=== PATIENT | male | born 1990 | race Caucasian/White ===

== ENCOUNTER 2017-07-10 04:14 | Emergency (ER) | payer OTHER ==
[~2017-07-10] VITALS: Ht 167.6 cm; Wt 74.9 kg
[~2017-07-10 04:14] MED LIST: ACCUFLORA PROBIOTIC PO; ACETAMINOP160 MG/51 GT; ALBUTEROL2.5 MG/3 M IH; ALPRAZOLAM0.5 MG GT; AMBIEN10 MG PO; AMOX/CLAV; AVENTYL,PAMELOR10 MG PO; AVENTYL,PAMELOR50 MG PO; BACLOFEN10 MG PO; CALCIUM 600 +1 EAC4 PO; CELEXA20 MG PO; CIPRO500 MG PO; CITALOPRAM HBR20 MG PO; CLONAZEPAM0.5 MG PO; CLONAZEPAM1 MG PO; COLACE100 MG PO; Coumadin,Jantoven PO; DIAZEPAM5 MG PO; DITROPAN XL10 MG PO; DOCUSATE SODIU100 MG GT; DOCUSATE SODIU100 MG PO; DOXYCYCLINE HYC50 MG PO; DULCOLAX10 MG PR; ESCITALOPRAM OX20 MG PO; FEOSOL325 MG PO; FERRO-TIME325 MG PO; FERROUS SULFAT325 M2 PO; FERROUS SULFAT325 MG PO; FLUDROCORTISON0.1 M1 PO; IRON325 MG PO; KEFLEX500 MG PO; KLONOPIN0.5 M1 PO; LEVAQUIN750 MG PO; LEXAPRO20 MG GT; LIDOCREAM15 GM TP; LOPRESSOR25 MG PO; LOVENOX80 MG/0.8 SC; Lovenox SC; MEGACE40 MG PO; METOPROLOL TART25 MG PO; MIRTAZAPINE30 MG PO; MORPHINE SUL10 MG/M1 IV; MYCOSTATIN 100,60 ML PO; Maxipime IV; OMEPRAZOLE40 M1 PO; OXYBUTYNIN CHLO10 MG; OXYBUTYNIN CHLO10 MG PO; OXYCODONE H5 MG/5 ML GT; OXYCODONE HCL10 MG PO; OXYCODONE HCL15 MG PO; OXYCONTIN15 MG PO; PERCOCET 5/31 TABLET PO; PROBIOTIC1 EAC2 PO; PROMETHAZINE HC25 M1 PO; PROMETHAZINE12.5 M1 PO; PROTONIX40 M1 GT; PROVENTIL,2.5 MG/3 M IH; PROVENTIL2.5 MG/3 M IH; PULMICORT0.25 MG/1 IH; REMERON30 M2 PO; ROXICODONE15 MG PO; SENNA LAX; SENNA PLUS TAB1 EACH PO; SENNA8.6 M1 PO; SENOKOT5 ML GT; SEPTRA DS TABL1 EACH PO; SEROQUEL100 MG GT; TRAMADOL HCL50 MG PO; TRANSDERM-SCO1 PATCH TD; TYLENOL EXTRA500 MG PO; VANCOCIN 250 M250 MG PO; VANCOMYCIN HCL250 MG PO; VIAGRA50 MG PO; VIT D3 2000 IU; VITAMIN A10000 UNIT PO; VITAMIN D2000 INTUN PO; VITAMIN D2000 UNIT PO; VITAMIN D22000 UNIT; Vancomycin IV; XANAX0.5 MG GT; XARELTO15 MG PO; Xylocaine 5% TP; ZANAFLEX4 M1 PO; ZOFRAN ODT8 MG PO; ZOFRAN4 MG PO; ZYPREXA10 MG GT; [UNRECOGNIZED DRUG - OTHER] IV; vitamin A
[2017-07-10] MEDS ORDERED: CALCIUM 500 MG1 EACH PO (04:28)
[2017-07-10] MEDS ORDERED: OXYMORPHONE HCL10 M1 PO (04:29)
[2017-07-10] MEDS ORDERED: FLEXERIL10 MG PO (04:37)
[2017-07-10 06:52] VITALS: BP 93/69
== END 2017-07-10 08:30 | disposition home or self-care (01) ==
LOC: EME → EDBD 04:14 → EME 04:14
DX: S80.02XA Contusion of left knee, initial encounter (principal); S00.93XA Contusion of unspecified part of head, initial encounter; S80.212A Abrasion, left knee, initial encounter; M54.2 Cervicalgia; W05.0XXA Fall from non-moving wheelchair, initial encounter; G82.50 Quadriplegia, unspecified; I10 Essential (primary) hypertension; J45.909 Unspecified asthma, uncomplicated; K21.9 Gastro-esophageal reflux disease without esophagitis; Z86.718 Personal history of other venous thrombosis and embolism; Z87.891 Personal history of nicotine dependence
CPT/HCPCS: 70450; 72125; 73564; 99281; 99284

== ENCOUNTER 2017-10-19 10:10 | Emergency (ER) | payer OTHER ==
[~2017-10-19] VITALS: Ht 182.9 cm; Wt 77.3 kg
[~2017-10-19 10:10] MED LIST changes: +CALCIUM 500 MG1 EACH PO; +FLEXERIL10 MG PO; +OXYMORPHONE HCL10 M1 PO
[2017-10-19 13:13] LABS: APPEARANCE SL.HAZY ((CLEAR)); BILIRUBIN NEGATIVE; BLOOD MODERATE; COLOR YELLOW ((YELLOW)); GLUCOSE (STRIP) NEGATIVE; KETONES NEGATIVE; LEUKOCYTES LARGE; NITRITE NEGATIVE; PROTEIN (STRIP) NEGATIVE; SPECIFIC GRAVITY 1.009 (1.000-1.030); UROBILINOGEN 0.2 MG/DL (0.2-1.0)
[2017-10-19 13:41] LABS: BACTERIA 3+ /HPF; EPITHELIAL CELLS RARE /HPF; MUCUS NONE SEEN /LPF; UCUL ADDED? YES; WHITE BLOOD CELLS 20-30 /HPF (0-5)
[2017-10-19 13:54] LABS: BASOPHIL (%) 0.2 % (0-1); EOSINOPHIL (%) 0.1 % (0-5); HEMATOCRIT 40.7 % (38.0-50.0); HEMOGLOBIN 13.9 G/DL (12.5-16.6); IMMATURE GRANULOCYTE (%) 0.4 % (0.0-0.7); LYMPHOCYTE (%) 17.3 % (15-42); LYMPHOCYTE COUNT 2.3 K/uL (1.0-2.8); MCHC 34.2 G/DL (30.0-36.0); MCV 87.7 FL (86-99); MONOCYTE (%) 7.9 % (3-12); MONOCYTE COUNT 1.1 K/uL (0-0.8); NEUTROPHIL (%) 74.1 % (45-76); PLATELET COUNT 164 K/uL (156-360); RBC DIS.WIDTH-CV 12.8 % (11.8-14.6); RBC DIS.WIDTH-SD 41.3 % (39-53); RED BLOOD COUNT 4.64 M/uL (4.00-5.50); WHITE BLOOD COUNT 13.4 K/uL (4.1-10.2)
[2017-10-19 14:01] LABS: ALBUMIN 3.4 g/dL (3.2-4.8)
[2017-10-19 14:02] LABS: CHLORIDE 103 mEq/L (99-109); SODIUM 136 mEq/L (136-147)
[2017-10-19 14:04] LABS: GLUCOSE 104 mg/dL (70-99); TOTAL PROTEIN 7.3 g/dL (6.4-8.3)
[2017-10-19 14:06] LABS: TOTAL BILIRUBIN 0.7 mg/dL (0.0-1.0)
[2017-10-19 14:07] LABS: ALKALINE PHOSPHATASE 101 IU/L (3-129)
[2017-10-19 14:08] LABS: CREATININE 0.7 mg/dL (0.6-1.3); GFR ESTIMATE (CALCULATED) > 59 mL/min/ (58.99-99999)
[2017-10-19 14:09] LABS: AST (GOT) 18 IU/L (2-34); UREA NITROGEN (BUN) 8 mg/dL (9-23)
[2017-10-19 14:11] LABS: ALT (GPT) 29 IU/L (3-49); LIPASE 11 U/L (1.0-51.0)
[2017-10-19] MEDS ORDERED: FLAGYL500 MG PO (16:26)
[2017-10-19] MEDS ORDERED: LEVAQUIN750 MG PO (16:26)
[2017-10-19] MEDS ORDERED: ONDANSETRON ODT4 MG PO (16:26)
[2017-10-19 17:42] VITALS: BP 116/66
== END 2017-10-19 17:42 | disposition home or self-care (01) ==
LOC: EME 10:10
PROVIDERS: Emergency Medicine
DX: J06.9 Acute upper respiratory infection, unspecified (principal); N39.0 Urinary tract infection, site not specified; R11.2 Nausea with vomiting, unspecified; J45.909 Unspecified asthma, uncomplicated; K21.9 Gastro-esophageal reflux disease without esophagitis; I10 Essential (primary) hypertension; G82.50 Quadriplegia, unspecified; F41.9 Anxiety disorder, unspecified; F32.9 Major depressive disorder, single episode, unspecified; F31.9 Bipolar disorder, unspecified; G89.29 Other chronic pain; Z86.718 Personal history of other venous thrombosis and embolism; Z87.891 Personal history of nicotine dependence; Z86.14 Personal history of Methicillin resistant Staphylococcus aureus infection; Z88.1 Allergy status to other antibiotic agents; Z88.8 Allergy status to other drugs, medicaments and biological substances
CPT/HCPCS: 71045; 80053; 81003; 83605; 83690; 85025; 87040; 87077; 87086; 87186; 87502; 99281; 99285; J1956; J2270; J2405; J7030

== ENCOUNTER 2018-03-14 19:03 | Emergency (ER) | payer OTHER ==
[~2018-03-14] VITALS: Ht 182.9 cm; Wt 77.7 kg
[~2018-03-14 19:03] MED LIST changes: +FLAGYL500 MG PO; +ONDANSETRON ODT4 MG PO
[2018-03-14 19:40] LABS: BASOPHIL (%) 0.4 % (0-1); EOSINOPHIL (%) 2.1 % (0-5); EOSINOPHIL COUNT 0.2 K/uL (0-0.3); HEMATOCRIT 40.1 % (38.0-50.0); IMMATURE GRANULOCYTE (%) 0.2 % (0.0-0.7); LYMPHOCYTE (%) 30.2 % (15-42); MCH 29.5 PG (29.0-34.0); MCHC 34.9 G/DL (30.0-36.0); MCV 84.6 FL (86-99); MONOCYTE (%) 5.4 % (3-12); MONOCYTE COUNT 0.5 K/uL (0-0.8); NEUTROPHIL (%) 61.7 % (45-76); NEUTROPHIL COUNT 6.1 K/uL (1.8-6.4); PLATELET COUNT 250 K/uL (156-360); RBC DIS.WIDTH-CV 12.3 % (11.8-14.6); RED BLOOD COUNT 4.74 M/uL (4.00-5.50); WHITE BLOOD COUNT 9.9 K/uL (4.1-10.2)
[2018-03-14 19:48] LABS: AMYLASE 45 IU/L (1-118); CHLORIDE 100 mEq/L (99-109); POTASSIUM 3.9 mEq/L (3.7-5.4); SODIUM 136 mEq/L (136-147)
[2018-03-14 19:49] LABS: GLUCOSE 118 mg/dL (70-99)
[2018-03-14 19:53] LABS: CREATININE 0.9 mg/dL (0.6-1.3); GFR ESTIMATE (CALCULATED) > 59 mL/min/ (58.99-99999); SERUM ETHYL ALCOHOL < 10 mg/dL
[2018-03-14 19:54] LABS: UREA NITROGEN (BUN) 9 mg/dL (9-23)
[2018-03-14 19:56] LABS: LIPASE 39 U/L (1.0-51.0)
[2018-03-14 21:40] LABS: APPEARANCE CLEAR ((CLEAR)); BILIRUBIN NEGATIVE; BLOOD SMALL; COLOR STRAW ((YELLOW)); GLUCOSE (STRIP) NEGATIVE; KETONES NEGATIVE; LEUKOCYTES LARGE; NITRITE POSITIVE; PROTEIN (STRIP) NEGATIVE; SPECIFIC GRAVITY 1.021 (1.000-1.030); UROBILINOGEN 0.2 MG/DL (0.2-1.0)
[2018-03-14 21:50] LABS: AMPHETAMINE NEGATIVE (500 ng/mL); BARBITURATES NEGATIVE (200 ng/mL); BENZODIAZEPINES NEGATIVE (150 ng/mL); BUPRENORPHINE NEGATIVE (10 ng/mL); COCAINE NEGATIVE (150 ng/mL); METHADONE NEGATIVE (200 ng/mL); METHAMPHETAMINE NEGATIVE (500 ng/mL); OPIATES (MORPHINE) NEGATIVE (100 ng/mL); OXYCODONE PRESUMPTIVE POSITIVE (100 ng/mL); PHENCYCLIDINE NEGATIVE (25 ng/mL); PROPOXYPHENE NEGATIVE (300 ng/mL); THC CANNABINOIDS NEGATIVE (50 ng/mL); TRICYCLIC ANTIDEPRESSANTS NEGATIVE (300 ng/mL)
[2018-03-14 21:50] LABS: BACTERIA NONE SEEN /HPF; EPITHELIAL CELLS RARE /HPF; MUCUS TRACE /LPF; RED BLOOD CELLS 0-5 /HPF (0-5); UCUL ADDED? YES
[2018-03-14 22:42] VITALS: BP 98/66
== END 2018-03-14 23:14 | disposition home or self-care (01) ==
LOC: TRA 19:03 → EME 19:03 → TRA 23:14
PROVIDERS: Emergency Medicine
PROC: 3E0234Z Introduction of Serum, Toxoid and Vaccine into Muscle, Percutaneous Approach (ICD-10-PCS; principal; 2018-03-14)
DX: S63.501A Unspecified sprain of right wrist, initial encounter (principal); S80.02XA Contusion of left knee, initial encounter; S30.810A Abrasion of lower back and pelvis, initial encounter; R91.1 Solitary pulmonary nodule; V00.811A Fall from moving wheelchair (powered), initial encounter; W20.8XXA Other cause of strike by thrown, projected or falling object, initial encounter; Z23 Encounter for immunization; I10 Essential (primary) hypertension; K21.9 Gastro-esophageal reflux disease without esophagitis; J45.909 Unspecified asthma, uncomplicated; G82.50 Quadriplegia, unspecified; F41.9 Anxiety disorder, unspecified; F31.9 Bipolar disorder, unspecified; F32.9 Major depressive disorder, single episode, unspecified; Z87.891 Personal history of nicotine dependence; Z99.3 Dependence on wheelchair; Z86.718 Personal history of other venous thrombosis and embolism; Z86.79 Personal history of other diseases of the circulatory system; Z87.448 Personal history of other diseases of urinary system; Z86.14 Personal history of Methicillin resistant Staphylococcus aureus infection; Z79.891 Long term (current) use of opiate analgesic; Z90.2 Acquired absence of lung [part of]; Z88.1 Allergy status to other antibiotic agents; Z88.8 Allergy status to other drugs, medicaments and biological substances
CPT/HCPCS: 70450; 71260; 72125; 73100; 73564; 74177; 80048; 81003; 82150; 83690; 85025; 86850; 86870; 86900; 86901; 86905; 86920; 87077; 87086; 87186; 99281; 99285; G0480; J3010

== ENCOUNTER 2018-04-22 23:51 | Emergency (ER) | payer OTHER ==
[~2018-04-22] VITALS: Ht 177.8 cm; Wt 77.3 kg
[2018-04-23 01:47] VITALS: BP 146/115
== END 2018-04-23 01:47 | disposition home or self-care (01) ==
LOC: EME 23:51
PROC: 0HQFXZZ Repair Right Hand Skin, External Approach (ICD-10-PCS; principal; 2018-04-22)
DX: S61.411A Laceration without foreign body of right hand, initial encounter (principal); X58.XXXA Exposure to other specified factors, initial encounter; Z98.890 Other specified postprocedural states; Z89.021 Acquired absence of right finger(s); G82.50 Quadriplegia, unspecified; Z79.01 Long term (current) use of anticoagulants; Z79.891 Long term (current) use of opiate analgesic
CPT/HCPCS: 73130; 85027; 99281; 99284